=== PATIENT | male | born 1970 | race African-American/Black ===

== ENCOUNTER 2019-08-06 19:36 | Emergency (ER) | payer OTHER, MEDICAID ==
[~2019-08-06] VITALS: Ht 172.7 cm; Wt 69.9 kg
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
--- NOTE | 2019-08-06 20:48 | NUR ---
PT MEDICALLY CLEARED.
[2019-08-06 20:49] VITALS: BP 124/72
--- NOTE | 2019-08-06 20:49 | NUR ---
Patient discharged to home in stable condition. Written and verbal after care instructions given. Patient verbalizes understanding of instruction.
== END 2019-08-06 20:59 ==
LOC: ER 19:37
DX: S30.0XXA Contusion of lower back and pelvis, initial encounter (principal); L89.151 Pressure ulcer of sacral region, stage 1; X58.XXXA Exposure to other specified factors, initial encounter; Y93.39 Activity, other involving climbing, rappelling and jumping off; Y92.89 Other specified places as the place of occurrence of the external cause; Y99.8 Other external cause status
CPT/HCPCS: 72100-TC

== ENCOUNTER 2019-08-07 04:14 | Emergency (ER) | payer MEDICAID, OTHER ==
[~2019-08-07] VITALS: Ht 172.7 cm; Wt 60.3 kg
--- NOTE | 2019-08-07 04:30 | NUR ---
Pt to ER [facility] from [facility] for medical clearance. Patient already medically cleared in ER earlier today. Pt to er bed 14, resting comfortably in [facility]. No signs of distress noted. Pt vital signs stable. Will cont to [facility] pt.
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
--- NOTE | 2019-08-07 08:45 | NUR ---
fawad kessler at bedside for eval
[2019-08-07 09:35] VITALS: BP 134/75
--- NOTE | 2019-08-07 09:48 | NUR ---
Patient discharged to home in stable condition. Written and verbal after care instructions given. Patient verbalizes understanding of instruction.
== END 2019-08-07 10:16 | disposition home or self-care (01) ==
LOC: ER 04:15
DX: Z02.89 Encounter for other administrative examinations (principal)